=== PATIENT | male | born 2005 | race Caucasian/White ===

== ENCOUNTER 2024-06-07 12:00 | Emergency (ER) | payer OTHER ==
[~2024-06-07] VITALS: Ht 188 cm; Wt 84.5 kg
[2024-06-07] MEDS ORDERED: TRAZ-252 PO (12:16)
[2024-06-07] MEDS ORDERED: METH-1165 PO (15:18)
[2024-06-07] MEDS ORDERED: IBUP-1022 PO (15:18)
[2024-06-07 15:29] VITALS: BP 148/78; TEMP 97.2; O2SAT 99
== END 2024-06-07 15:30 | disposition home or self-care (01) ==
LOC: M ED 12:00
DX: S13.4XXA Sprain of ligaments of cervical spine, initial encounter (principal); V49.50XA Passenger injured in collision with unspecified motor vehicles in traffic accident, initial encounter; Y92.410 Unspecified street and highway as the place of occurrence of the external cause; Y93.89 Activity, other specified; Y99.9 Unspecified external cause status; Z79.1 Long term (current) use of non-steroidal anti-inflammatories (NSAID); Z79.899 Other long term (current) drug therapy

== ENCOUNTER 2024-11-11 21:03 | Emergency (ER) | payer OTHER ==
[~2024-11-11] VITALS: Ht 188 cm; Wt 98.1 kg
[~2024-11-11 21:03] MED LIST: IBUP-1022 PO; METH-1165 PO; TRAZ-252 PO
[2024-11-12] MEDS: AZITHROMYCIN 250MG TABLET PO ONE (01:29)
[2024-11-12] MEDS ORDERED: AZIT-12 PO (04:02)
[2024-11-12] MEDS ORDERED: BENZ200C70 PO (04:02)
[2024-11-12] MEDS ORDERED: VENTAER INH (04:03)
[2024-11-12 04:15] VITALS: BP 136/70; TEMP 97.8; O2SAT 96
== END 2024-11-12 04:21 | disposition home or self-care (01) ==
LOC: M ED 21:03
DX: J15.7 Pneumonia due to Mycoplasma pneumoniae (principal); Z79.52 Long term (current) use of systemic steroids; Z79.2 Long term (current) use of antibiotics; Z79.899 Other long term (current) drug therapy